=== PATIENT | male | born 1985 | race Caucasian/White ===

== ENCOUNTER 2018-09-03 16:30 | Emergency (ER) | payer OTHER ==
[~2018-09-03] VITALS: Ht 182.9 cm; Wt 82.2 kg
[2018-09-03 16:31] VITALS: BP 143/81
[2018-09-03] MEDS ORDERED: KETOROLAC 30 MG/1 ML ONE (16:55)
[2018-09-03] MEDS ORDERED: OXYcodone/APAP 5/325MG TABLET ONE (16:55)
[2018-09-03] MEDS ORDERED: KETOROLAC 30 MG/1 ML IM ONE (17:00)
[2018-09-03] MEDS ORDERED: OXYcodone/APAP 5/325MG TABLET PO ONE (17:00)
== END 2018-09-03 18:35 | disposition home or self-care (01) ==
LOC: ED 17:56
DX: S39.012A Strain of muscle, fascia and tendon of lower back, initial encounter (principal); S20.212A Contusion of left front wall of thorax, initial encounter; W01.0XXA Fall on same level from slipping, tripping and stumbling without subsequent striking against object, initial encounter; Y93.89 Activity, other specified; Y92.488 Other paved roadways as the place of occurrence of the external cause; Y99.8 Other external cause status
CPT/HCPCS: 71101; 72110; 96372; 99283; J1885